=== PATIENT | male | born 2000 | race Two or more races ===

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

== ENCOUNTER 2018-12-16 22:44 | Day surgery (SDC) | payer OTHER ==
[2018-12-16] MEDS ORDERED: Sodium Chloride 0.9% 1,000 ML IV ONE (23:14)
[2018-12-16] MEDS ORDERED: Ondansetron 4 MG/2 ML SDV IV ONE (23:14)
--- NOTE | 2018-12-16 23:16 | EDM.PDOC ---
ED HPI GENERAL MEDICAL PROBLEM - General Chief Complaint: Abdominal Pain Stated Complaint: STOMACH EVERYWHERE THINKS IT GAS PER PT Time Seen by Provider: 12/16/18 23:14 Source of Information: Reports: Patient History Limitations: Reports: No Limitations - History of Present Illness INITIAL COMMENTS - FREE TEXT/NARRATIVE: onset general abd all day, nauseous and vomit when tried to eat. Abdomen Pain Score (Numeric/FACES): 8 - Related Data Allergies Allergy/AdvReac Type Severity Reaction Status Date / Time No Known Allergies Allergy Verified 12/16/18 22:54 Home Meds: Home Meds . [No Known Home Meds] 12/16/18 [History] Past Medical History - Past Surgical History GI Surgical History: Reports: Other (See Below) Other GI Surgeries/Procedures: stomach sleeve surgery 4 years ago. Social & Family History - Family History Family Medical History: Noncontributory - Tobacco Use Smoking Status *Q: Current Every Day Smoker Years of Tobacco use: 1 Packs/Tins Daily: 0.5 - Caffeine Use Caffeine Use: Reports: Coffee, Energy Drinks, Soda, Tea - Recreational Drug Use Recreational Drug Use: No ED ROS GENERAL - Review of Systems Review Of Systems: ROS reveals no pertinent complaints other than HPI. ED EXAM, GI/ABD - Physical Exam Exam: See Below Exam Limited By: No Limitations General Appearance: Alert, WD/WN, Mild Distress, Other (discomfort). No: Active Emesis Ears: Hearing Grossly Normal Throat/Mouth: Normal Voice, No Airway Compromise Head: Atraumatic Neck: Non-Tender, Full Range of Motion Respiratory/Chest: No Respiratory Distress Cardiovascular: Regular Rate, Rhythm GI/Abdominal Exam: Guarding, Rebound, Tender, Other (RUQ>RLQ>PERIUMB). No: Distended, Rigid Neurological: Alert, Oriented, Normal Cognition, No Motor/Sensory Deficits Psychiatric: Tearful Skin Exam: Warm, Dry, Normal Color Lymphatic: No Adenopathy Course - Vital Signs Last Recorded V/S: Last Vital Signs Temp 36.8 C 12/16/18 22:55 Pulse 87 12/16/18 22:55 Resp 16 12/16/18 22:55 BP 126/75 12/16/18 22:55 Pulse Ox 100 12/16/18 22:55 - Orders/Labs/Meds Orders: Active Orders 24 hr Category Date Time Status Abdomen Pelvis w Cont [CT] Urgent Exams 12/17/18 00:16 Taken Piperacillin/Tazobactam [Zosyn] 3.375 gm Med 12/17/18 01:22 Active Sodium Chloride 0.9% [Normal Saline] 100 ml IV ONETIME Medication Orders Piperacillin Sod/Tazobactam (Sod 3.375 gm/ Sodium Chloride) 100 mls @ 200 mls/ hr IV ONETIME ONE Stop: 12/17/18 01:51 Labs: Laboratory Tests 12/16/18 12/16/18 12/17/18 Range/Units 23:20 23:20 00:43 WBC 18.5 H (5.0-10.0) 10^3/uL RBC 5.90 (4.6-6.2) 10^6/uL Hgb 17.0 (14.0-18.0) g/dL Hct 48.3 (40.0-54.0) % MCV 81.9 (80-100) fL MCH 28.8 (27.0-34.0) pg MCHC 35.2 H (33.0-35.0) g/dL Plt Count 207 (150-450) 10^3/uL Neut % (Auto) 86.7 H (42.2-75.2) % Lymph % (Auto) 7.5 L (20.5-50.1) % Isabella % (Auto) 5.1 (2-8) % Eos % (Auto) 0.6 L (1.0-3.0) % Baso % (Auto) 0.1 (0.0-1.0) % Sodium 137 (135-145) mmol/L Potassium 3.4 L (3.6-5.0) mmol/L Chloride 102 (101-111) mmol/L Carbon Dioxide 24.0 (21.0-31.0) mmol/L Anion Gap 14.4 BUN 10 (7-18) mg/dL Creatinine 0.9 (0.6-1.3) mg/dL Est Cr Clr Drug Dosing 143.70 mL/min Estimated GFR (MDRD) > 60 BUN/Creatinine Ratio 11.11 Glucose 105 (74-105) mg/dL Calcium 9.3 (8.4-10.2) mg/dl Total Bilirubin 1.0 (0.2-1.0) mg/dL AST 21 (10-42) IU/L ALT 17 (10-60) IU/L Alkaline Phosphatase 74 (42-121) IU/L Total Protein 7.6 (6.7-8.2) g/dl Albumin 4.6 (3.2-5.5) g/dl Globulin 3.0 Albumin/Globulin Ratio 1.53 Amylase 57 (28-100) U/L Lipase 27 (22-51) U/L Urine Color Yellow (YELLOW) Urine Appearance Clear (CLEAR) Urine pH 6.0 (5.0-9.0) Ur Specific [place] <= 1.005 (1.005-1.030) Urine Protein Negative (NEGATIVE) Urine Glucose (UA) Negative (NEGATIVE) Urine Ketones Trace H (NEGATIVE) Urine Occult Blood Negative (NEGATIVE) Urine Nitrite Negative (NEGATIVE) Urine Bilirubin Negative (NEGATIVE) Urine Urobilinogen 0.2 (0.2-1.0) mg/dL Ur Leukocyte Esterase Negative (NEGATIVE) Meds: Medications Generic Name Dose Route Start Last Admin Trade Name Freq PRN Reason Stop Dose Admin Piperacillin Sod/Tazobactam 100 mls @ 200 mls/hr 12/17/18 01:22 Sod 3.375 gm/ Sodium Chloride IV 12/17/18 01:51 ONETIME ONE Discontinued Medications Generic Name Dose Route Start Last Admin Trade Name Freq PRN Reason Stop Dose Admin Sodium Chloride 1,000 mls @ 999 mls/hr 12/16/18 23:14 12/16/18 23:21 Normal Saline IV 12/17/18 00:14 999 mls/hr .BOLUS ONE Administration Iopamidol 100 ml 12/17/18 00:16 12/17/18 00:24 Isovue-300 (61%) IVPUSH 12/17/18 00:17 100 ml ONETIME ONE Administration Ondansetron HCl 4 mg 12/16/18 23:14 12/16/18 23:21 Zofran IV 12/16/18 23:15 4 mg ONETIME ONE Administration - Re-Assessments/Exams Free Text/Narrative Re-Assessment/Exam: 12/17/18 01:[address] Jeffrey who kindly accepted pt for appendectomy. Departure - Departure Time of Disposition: 01:35 Disposition: Refer to Observation Condition: Good Clinical Impression: Appendicitis Qualifiers: Appendicitis type: acute appendicitis Acute appendicitis type: with localized peritonitis Appendicitis gangrene presence: without gangrene Appendicitis perforation presence: without perforation Appendicitis abscess presence: without abscess Qualified Code(s): K35.30 - Acute appendicitis with localized peritonitis, without perforation or gangrene - Discharge Information Forms: ED Department Discharge - My Orders Last 24 Hours: My Active Orders 12/17/18 00:16 Abdomen Pelvis w Cont [CT] Urgent 12/17/18 01:22 Piperacillin/Tazobactam [Zosyn] 3.375 gm Sodium Chloride 0.9% [Normal Saline] 100 ml IV ONETIME - Assessment/Plan Last 24 Hours: My Active Orders 12/17/18 00:16 Abdomen Pelvis w Cont [CT] Urgent 12/17/18 01:22 Piperacillin/Tazobactam [Zosyn] 3.375 gm Sodium Chloride 0.9% [Normal Saline] 100 ml IV ONETIME
[2018-12-16 23:48] LABS: ANION GAP 14.4; CHLORIDE,CL 102 mmol/L (101-111); SODIUM,NA 137 mmol/L (135-145)
[2018-12-17] MEDS ORDERED: Iopamidol 612 MG/ML 100 ML Bottle IVPUSH ONE (00:16)
[2018-12-17] MEDS ORDERED: Piperacillin/Tazobactam 3.375 GM in Sodium Chloride 0.9% 100 ML IV ONE (01:22)
[2018-12-17] MEDS ORDERED: Propofol 200 MG/20 ML SDV IV ONE (02:15)
[2018-12-17] MEDS ORDERED: Dexamethasone 4 MG/ML SDV IV ONE (02:15)
[2018-12-17] MEDS ORDERED: Neostigmine Methylsulfate 10 MG/10 ML MDV IV ONE (02:15)
[2018-12-17] MEDS ORDERED: Rocuronium 100 MG/10 ML MDV IV ONE (02:15)
[2018-12-17] MEDS ORDERED: Glycopyrrolate 0.2 MG/ML 2 ML SDV IV ONE (02:15)
[2018-12-17] MEDS ORDERED: fentaNYL 250 MCG/5 ML SDV IV ONE (02:15)
[2018-12-17] MEDS ORDERED: Lidocaine 2% 20 ML MDV ONE (02:15)
[2018-12-17] MEDS ORDERED: Lidocaine 1% 30 ML SDV INJECT ONE ×2 (02:15→02:54)
[2018-12-17] MEDS ORDERED: Lactated Ringers 1,000 ML IV ONE (02:15)
[2018-12-17] MEDS ORDERED: Ondansetron 4 MG/2 ML SDV IV ONE (02:15)
[2018-12-17] MEDS ORDERED: Midazolam 1 MG/ML 2 ML SDV IV ONE (02:15)
[2018-12-17] MEDS ORDERED: Ketorolac 30 MG/ML SDV IVPUSH ONE (02:15)
[2018-12-17] MEDS ORDERED: Lactated Ringers 1,000 ML IV SCH (02:21)
[2018-12-17] MEDS ORDERED: Lidocaine 1% 30 ML SDV ONE (02:50)
--- NOTE | 2018-12-17 03:19 | OR ---
DATE: 12/17/2018 PREOPERATIVE DIAGNOSIS: Acute appendicitis. POSTOPERATIVE DIAGNOSIS: Acute appendicitis. PROCEDURE: Laparoscopic appendectomy. ANESTHESIA: General. ESTIMATED BLOOD LOSS: 20 mL. SPECIMEN: Appendix. INDICATION FOR PROCEDURE: This 18-year-old male presents to the emergency room with a day long history of appendicitis. He has an elevated white blood cell count and a CT scan consistent with appendicitis. His physical examination also shows moderate tenderness in the right lower quadrant. PROCEDURE IN DETAIL: After adequate preparation, an infraumbilical incision was made and a Veress needle placed intra-abdominally. The abdomen was then insufflated and a 5 mm trocar was placed. Two other midline trocars were placed under direct vision. The examination of the appendix did show it to be acutely infected, but not perforated. A stapling device was used through the suprapubic trocar site to transect the appendiceal mesentery and the base of the appendix at the level of the cecum. Hemostasis was controlled with cautery. The right lower quadrant area was suctioned clear of blood. No other intraabdominal abnormalities were noted. The abdomen was desufflated, the trocars removed, and the skin closed with 4-0 Monocryl. [facility] /[id number]
--- NOTE | 2018-12-19 09:06 | HP ---
PREOPERATIVE HISTORY AND PHYSICAL ADMITTING DIAGNOSIS: Acute appendicitis. INTRODUCTION: This 18-year-old male presented to the emergency room with a day long history of abdominal pain located in the right lower quadrant. He has moderate pain to palpation and does have rebound. A CT scan shows acute appendicitis that is nonruptured and his white blood cell count is elevated to 18,000. He is anorexic and has had 1 episode of nausea and vomiting. ALLERGIES: The patient has no allergies. CURRENT MEDICATIONS: None. PRIOR SURGERIES: Include sleeve gastrectomy for weight loss. This was done in [facility], where he is from. PAST MEDICAL HISTORY: Otherwise, unremarkable. PHYSICAL EXAMINATION: HEENT: Normal. Chest: The lungs are clear bilaterally. Heart: Normal sinus rhythm without murmur. Abdomen: Nonobese. He has pain to palpation in the right lower quadrant. No masses or hernias. Extremities: Normal. He has no edema. Neurologic: Grossly intact. ASSESSMENT: Acute appendicitis. PLAN: I discussed the risks, benefits, and expected outcomes of a laparoscopic appendectomy with this patient. This will be done as an outpatient and we will proceed to the operating room now. [facility] /[id number]
== END 2018-12-17 09:04 | disposition home or self-care (01) ==
LOC: DL.ED 22:44 → DL.SDS 12-17 02:14 → DL.MS 12-17 06:30 → DL.SDS 12-17 09:04
PROVIDERS: ATTEND Surgery
DX: K35.30 Acute appendicitis with localized peritonitis, without perforation or gangrene (principal); F17.210 Nicotine dependence, cigarettes, uncomplicated; Z79.899 Other long term (current) drug therapy
CPT/HCPCS: 00840; 36415; 44970; 74177; 80053; 81003; 82150; 83690; 85025; 96361; 96365; 96375; 99285; J1100; J1885; J2001; J2250; J2405; J2543; J2704; J2710; J3010; J3490; J7030; J7050; J7120; Q9967